=== PATIENT | female | born 1965 | race Caucasian/White ===

== ENCOUNTER 2019-03-31 12:25 | Emergency (ER) | payer OTHER ==
[~2019-03-31] VITALS: Ht 162.6 cm; Wt 81.6 kg
--- NOTE | 2019-03-31 12:25 | NUR ---
PATIENT TO BED 4 BY EMS AT THIS TIME.
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
[2019-03-31 12:30] VITALS: BP 153/87
--- NOTE | 2019-03-31 12:34 | NUR ---
XRAY AT BEDSIDE
--- NOTE | 2019-03-31 12:45 | NUR ---
DR ALVAREZ AT BEDSIDE EVALUATING PT.
[2019-03-31] MEDS ORDERED: KETOROLAC 60 MG/2 ML VIAL IM ONE (12:50)
--- NOTE | 2019-03-31 12:57 | NUR ---
X-Ray at bedside.
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
[2019-03-31 13:52] VITALS: BP 148/87
--- NOTE | 2019-03-31 13:53 | NUR ---
Patient discharged with v/s stable. Written and verbal after care instructions given and explained. Patient alert, oriented and verbalized understanding of instructions. Ambulatory with steady gait. All questions addressed prior to discharge. ID band removed. Patient advised to follow up with PMD. Rx of [place] given. Patient educated on indication of medication including possible reaction and side effects. Opportunity to ask questions provided and answered.
== END 2019-03-31 13:53 | disposition home or self-care (01) ==
LOC: MED 12:25
DX: S62.101A Fracture of unspecified carpal bone, right wrist, initial encounter for closed fracture (principal); S20.212A Contusion of left front wall of thorax, initial encounter; R10.30 Lower abdominal pain, unspecified; M79.631 Pain in right forearm; V49.59XA Passenger injured in collision with other motor vehicles in traffic accident, initial encounter; W22.10XA Striking against or struck by unspecified automobile airbag, initial encounter; Y93.89 Activity, other specified; Y99.8 Other external cause status; Y92.488 Other paved roadways as the place of occurrence of the external cause
CPT/HCPCS: 29125; 71045; 73110; 96372; 99283; J1885; Q0092